=== PATIENT | female | born 1955 | race Two or more races ===

== ENCOUNTER 2021-05-18 07:25 | Outpatient (CLI) | payer OTHER | END 2021-05-18 07:35 | disposition home or self-care (01) | LOC: NUCLEAR 07:25 | PROVIDERS: ATTEND Internal Medicine | DX: R91.8 Other nonspecific abnormal finding of lung field (principal); R05 Cough; R93.89 Abnormal findings on diagnostic imaging of other specified body structures | CPT/HCPCS: 78816; A9552 ==

== ENCOUNTER 2021-05-20 11:52 | Outpatient (CLI) | payer OTHER | END 2021-05-20 12:11 | disposition home or self-care (01) | LOC: MAMO-SONO 11:52 | PROVIDERS: ATTEND Internal Medicine | DX: N64.4 Mastodynia (principal); Z12.31 Encounter for screening mammogram for malignant neoplasm of breast ==

== ENCOUNTER → 2021-05-26 | Outpatient (CLI) | payer OTHER | END | disposition home or self-care (01) | LOC: NUCLEAR 13:00 | PROVIDERS: ATTEND Internal Medicine | DX: M81.0 Age-related osteoporosis without current pathological fracture (principal) ==

== ENCOUNTER 2022-04-14 09:59 | Outpatient (CLI) | payer OTHER | END 2022-04-14 10:03 | disposition home or self-care (01) | LOC: SONOGRAMA 09:59 | PROVIDERS: ATTEND Internal Medicine | DX: R10.11 Right upper quadrant pain (principal) ==

== ENCOUNTER 2023-01-11 14:35 | Outpatient (CLI) | payer OTHER | END 2023-01-11 14:45 | disposition home or self-care (01) | LOC: MAMO-SONO 14:35 | PROVIDERS: ATTEND Internal Medicine | DX: Z12.31 Encounter for screening mammogram for malignant neoplasm of breast (principal) ==

== ENCOUNTER 2025-07-28 14:23 | Outpatient (CLI) | payer OTHER | END 2025-07-28 14:31 | disposition home or self-care (01) | LOC: MAMO-SONO 14:23 | PROVIDERS: ATTEND Internal Medicine | DX: Z12.31 Encounter for screening mammogram for malignant neoplasm of breast (principal); N64.4 Mastodynia ==